=== PATIENT | female | born 1965 | race African-American/Black ===

== ENCOUNTER 2019-04-30 21:17 | Emergency (ER) | payer OTHER ==
[~2019-04-30] VITALS: Ht 165.1 cm; Wt 79.4 kg
[2019-04-30 21:50] LABS: PLATELET COUNT 274 K/uL (152-353)
[2019-04-30 21:56] LABS: POTASSIUM 4.4 mmol/L (3.6-5.2)
[2019-04-30 21:59] LABS: PARTIAL THROMBOPLASTIN TIME 21.3 SECONDS (24.5-33.6)
[2019-05-01 00:07] VITALS: BP 108/72; TEMP 97.9
== END 2019-05-01 00:09 | disposition home or self-care (01) ==
LOC: ED 21:17
PROVIDERS: Hospitalist
DX: G43.909 Migraine, unspecified, not intractable, without status migrainosus (principal)
CPT/HCPCS: 36415; 80048; 85027; 85610; 85730; 96374; 96375; 99284; J1885; J2270; J2405